=== PATIENT | male | born 1955 | race American Indian/Alaskan Native ===

== ENCOUNTER 2016-12-21 02:29 | Emergency (ER) | payer MEDICAID ==
[2016-12-21 04:07] LABS: Basophils % (Auto) 0.6 % (0.0-1.8); Hematocrit 33.9 % (35.5-45.6); Hemoglobin 10.6 gm/dl (11.8-15.2); Mean Corpuscular HGB Conc 31 % (32-34); Mean Corpuscular Volume 72 fl (84-94); Platelet Count 395 K/mm3 (140-440); Red Blood Count 4.69 M/mm3 (3.65-5.03); White Blood Count 10.6 K/mm3 (4.5-11.0)
[2016-12-21 04:12] LABS: Mean Corpuscular Hemoglobin 23 pg (28-32)
[2016-12-21 04:21] LABS: BUN/Creatinine Ratio 10.58; Calcium 9.4 mg/dL (8.4-10.2)
[2016-12-21 04:22] LABS: Potassium 4.1 mmol/L (3.6-5.0)
[2016-12-21 06:33] LABS: Urine Drugs of Abuse Note Disclamer
[2016-12-21 06:58] LABS: Bilirubin,Urine NEG (Negative); Blood,Urine NEG (Negative); Ketones,Urine TR mg/dL (Negative); Leukocyte Esterase,Urine NEG (Negative); Mucus,Urine FEW /HPF; Nitrite,Urine NEG (Negative); Urobilinogen,Urine < 2.0 mg/dL (<2.0)
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
[2016-12-21 11:36] LABS: Calcium 9.5 mg/dL (8.4-10.2); Chloride 97.7 mmol/L (98-107); Potassium 4.1 mmol/L (3.6-5.0)
[2016-12-21] MEDS ORDERED: ATIVAN PO ONE (13:24)
--- NOTE | 2016-12-21 13:26 | Consultation ---
History of Present Illness - Reason for Consult Consult date: 12/21/16 Reason for consult: psychiatric evaluation - Chief Complaint Chief complaint: "Doctor changed my med. Not really working" 61 year old black male seen in the ER for psychiatric evaluation. Family brought him for acting bizarre and non compliance with psychiatric medications. Patient appears tremulous. He reports drinking a 6 pack of beer daily and has not had any in a day. He answered some questions and would later give information previously asked about. He was looking at the ceiling camera and the hallway for long periods of time during the attempted interview. He was not aggressive or threatening. He clearly appeared paranoid. He mentioned being on risperdal for 4 years and now is on zyprexa. I was unable to obtain further symptoms or history. Medications and Allergies Allergies Allergy/AdvReac Type Severity Reaction Status Date / Time No Known Allergies Allergy Unverified 11/30/15 10:01 Home Medications Medication Instructions Recorded Confirmed Last Taken Type Gabapentin [Gralise] 300 mg PO HS 12/21/16 12/21/16 1 Week Ago History 300 Lisinopril/Hydrochlorothiazide 1 tab PO QDAY 12/21/16 12/21/16 1 Week Ago History [Zestoretic 10-12.5 mg] 1 Mirtazapine [Remeron] 45 mg PO QHS 12/21/16 12/21/16 1 Week Ago History 45 Olanzapine [ZyPREXA] 20 mg PO QDAY 12/21/16 12/21/16 1 Week Ago History 20 Simvastatin [Zocor TAB] 10 mg PO QHS 12/21/16 12/21/16 1 Week Ago History 10 diphenhydrAMINE [Benadryl CAP] 50 mg PO QHS PRN 12/21/16 12/21/16 1 Week Ago History 50 metFORMIN [Glucophage] 500 mg PO BID 12/21/16 12/21/16 1 Week Ago History 500 Past psychiatric history - Past Medical History Past Medical History: other (unk) Past Surgical History: Other (unk) - past Psychiatric treatment and history Psych: Schizophrenia - Social History Social history: other (denies illicit drug use. admitted to daily alcohol use, 6 pk daily. bal neg) Mental Status Exam - Vital signs Last Vital Signs Temp 97.6 F 12/21/16 10:50 Pulse 119 H 12/21/16 10:50 Resp 18 12/21/16 10:50 BP 150/93 12/21/16 10:50 Pulse Ox 98 12/21/16 10:50 - Exam Narrative exam: unable to determine thought process. paucity Orientation: place, person Affect: other (frightened) Mood: fearful Thought content: paranoia Perceptions: other (unknown/unable to assess) Speech: paucity Concentration: unable to pay attention (kept staring at the camera) Motor activity: other (slo) Level of consciousness: alert Interaction: cooperative (attempted) Results Result Diagrams: 12/21/16 03:50 12/21/16 11:05 Abnormal lab results 12/21/16 12/21/16 12/21/16 Range/Units 03:50 03:50 06:59 Hgb 10.6 L (11.8-15.2) gm/dl Hct 33.9 L (35.5-45.6) % MCV 72 L (84-94) fl MCH 23 L (28-32) pg MCHC 31 L (32-34) % RDW 18.0 H (13.2-15.2) % Lymph % (Auto) 13.1 L (13.4-35.0) % Seg Neutrophils % 80.2 H (40.0-70.0) % Seg Neutrophils # 8.5 H (1.8-7.7) K/mm3 Chloride (98-107) mmol/L Carbon Dioxide 16 L (22-30) mmol/L Creatinine 1.7 H (0.8-1.5) mg/dL Glucose 141 H (75-100) mg/dL Total Creatine Kinase (55-170) units/L Salicylates < 0.3 L (2.8-20.0) mg/dL 12/21/16 12/21/16 Range/Units 07:00 11:05 Hgb (11.8-15.2) gm/dl Hct (35.5-45.6) % MCV (84-94) fl MCH (28-32) pg MCHC (32-34) % RDW (13.2-15.2) % Lymph % (Auto) (13.4-35.0) % Seg Neutrophils % (40.0-70.0) % Seg Neutrophils # (1.8-7.7) K/mm3 Chloride 97.7 L (98-107) mmol/L Carbon Dioxide 18 L (22-30) mmol/L Creatinine (0.8-1.5) mg/dL Glucose 163 H (75-100) mg/dL Total Creatine Kinase 286 H (55-170) units/L Salicylates (2.8-20.0) mg/dL All other labs normal. Assessment and Plan Assessment and plan: Impression: Psychosis Likely schizophrenia, paranoid type possible alcohol withdrawal Recommendation/Plan: Trial of Ativan 1mg po for tremors/anxiety CIWA for possible alcohol use disorder and potential for withdrawal Zyprexa 10mg bid for psychosis (per his home med/dose). Add cogentin 0.5mg bid for EPS prevention. 1013 and transfer to inpatient psych when medically cleared If patient in ER for extended period of time, will consider changing his antipsychotic. It is unclear if he was non compliant because of side effects. This is significant since the one clear statement the patient said was "doctor changed my med, not really working."
[2016-12-21] MEDS ORDERED: ATIVAN IV PRN (14:51)
[2016-12-21] MEDS ORDERED: ATIVAN PO PRN ×2 (14:51)
[2016-12-21] MEDS: COGENTIN PO SCH ×2 (17:30→22:13)
[2016-12-22] MEDS: COGENTIN PO SCH ×2 (09:49→23:05)
--- NOTE | 2016-12-22 18:07 | Progress Note ---
Subjective - Reason for Consult Consult date: 12/22/16 Reason for consult: psychosis Mental Status Exam - Vital signs Last Vital Signs Temp 99.3 F 12/22/16 07:54 Pulse 87 12/22/16 07:54 Resp 16 12/22/16 07:54 BP 98/50 12/22/16 07:54 Pulse Ox 100 12/22/16 07:54 Assessment and Plan Subjectively: Patient appears more organized today compared to the review of the medical record from the patient's examination yesterday. Patient is able to logically and coherently tell me his place of residence and is able to report that he wants to go back to his place residence. Patient lives in a personal correction with a roommate. Patient reports that he has an average monthly income of about $700. Patient does note that he was becoming increasingly paranoid; however, he has some insight into his paranoia and currently denies experiencing that people are out to get him. General Appearance: In hospital gown Sensorium/Consciousness: alert and responding to external stimuli; clear Orientation: person, place, time and situation Eye Contact: limited Attitude / Behavior: guarded Psychomotor & Musculoskeletal Activity: Tremor, perioral involuntary movements likely TD from long-term oral antipsychotic exposure Mood: Better Affect: constricted, limited range Speech / Language: fluent, with normal rate/rhythm/tone Thought Processes: More organized but clearly having a thought disorder Thought Content: No acute SI or HI, some paranoia has been reduced Perception: no AVH Insight: More insightful about the recent paranoid thoughts Judgement: Improving Capacity for ADLs: independent Plan: - Continue to evaluate if the patient needs to remain on an involuntary psychiatric hold - Continue Jalyn Camacho to help further organize his thought process and reduces paranoia
[2016-12-23] MEDS: COGENTIN PO SCH (10:08)
--- NOTE | 2016-12-23 16:34 | Progress Note ---
Subjective - Reason for Consult Consult date: 12/23/16 Reason for consult: disorganized behaviors Mental Status Exam - Vital signs Last Vital Signs Temp 97.8 F 12/23/16 09:05 Pulse 63 12/23/16 09:05 Resp 20 12/23/16 09:05 BP 117/70 12/23/16 09:05 Pulse Ox 98 12/23/16 09:05 Assessment and Plan Subjectively: Patient again appears more organized today. Per collateral information, patient is able to return home. Patient has requested to be discharged from the ER as his thought process has improved with the recent re-initiation of his medication regimen General Appearance: In hospital gown Sensorium/Consciousness: alert and responding to external stimuli; clear Orientation: person, place, time and situation Eye Contact: limited Attitude / Behavior: guarded Psychomotor & Musculoskeletal Activity: Tremor, perioral involuntary movements likely TD from long-term oral antipsychotic exposure Mood: Better Affect: constricted, limited range Speech / Language: fluent, with normal rate/rhythm/tone Thought Processes: More organized but clearly having a thought disorder Thought Content: No acute SI or HI, some paranoia has been reduced Perception: no AVH Insight: More insightful about the recent paranoid thoughts Judgement: Improving Capacity for ADLs: independent Plan: - Rescind 1013 - Continue Zyprexa and cogentin - Follow up with outpatient services
[2016-12-23 18:38] VITALS: BP 120/78
== END 2016-12-23 18:47 | disposition home or self-care (01) ==
LOC: EEVIPCON 02:29 → ED 02:29
DX: F20.9 Schizophrenia, unspecified (principal); F29 Unspecified psychosis not due to a substance or known physiological condition; F14.10 Cocaine abuse, uncomplicated; F10.10 Alcohol abuse, uncomplicated; F31.9 Bipolar disorder, unspecified; I10 Essential (primary) hypertension; E11.9 Type 2 diabetes mellitus without complications; E78.00 Pure hypercholesterolemia, unspecified; F17.200 Nicotine dependence, unspecified, uncomplicated
CPT/HCPCS: 36415; 80048; 80307; 81001; 82550; 85025; 99284; G0480; 80320

== ENCOUNTER 2017-05-30 09:11 | Emergency (ER) | payer MEDICAID ==
[2017-05-30 10:17] LABS: Basophils % (Auto) 0.4 % (0.0-1.8); Eosinophils % (Auto) 3.6 % (0.0-4.3); Hematocrit 35.4 % (35.5-45.6); Hemoglobin 11.4 gm/dl (11.8-15.2); Mean Corpuscular HGB Conc 32 % (32-34); Mean Corpuscular Hemoglobin 27 pg (28-32); Mean Corpuscular Volume 83 fl (84-94); Platelet Count 242 K/mm3 (140-440); Red Blood Count 4.27 M/mm3 (3.65-5.03); Red Cell Distribution Width 17.3 % (13.2-15.2); White Blood Count 5.6 K/mm3 (4.5-11.0)
[2017-05-30 10:20] LABS: Alanine Aminotransferase 7 units/L (7-56); Albumin 3.7 g/dL (3.9-5); Albumin/Globulin Ratio 1.1 %; Alkaline Phosphatase 84 units/L (35-129); Anion Gap 16 mmol/L; BUN/Creatinine Ratio 9; Blood Urea Nitrogen 11 mg/dL (9-20); Carbon Dioxide 25 mmol/L (22-30); Chloride 102.7 mmol/L (98-107); Glucose 96 mg/dL (75-100); Lipase 17 units/L (13-60); Potassium 4.3 mmol/L (3.6-5.0); Sodium 139 mmol/L (137-145); Total Protein 7.1 g/dL (6.3-8.2)
[2017-05-30 10:58] LABS: Bilirubin,Urine NEG (Negative); Blood,Urine NEG (Negative); Ketones,Urine NEG (Negative); Leukocyte Esterase,Urine NEG (Negative); Mucus,Urine FEW /HPF; Nitrite,Urine NEG (Negative); Protein,Urine <15 mg/dL mg/dL (Negative); Urobilinogen,Urine < 2.0 mg/dL (<2.0); WBC,Urine < 1.0 /HPF (0.0-6.0)
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
[2017-05-30 15:32] VITALS: BP 111/62
== END 2017-05-30 15:32 | disposition home or self-care (01) ==
LOC: ED 09:11
DX: K42.9 Umbilical hernia without obstruction or gangrene (principal); I10 Essential (primary) hypertension; E11.9 Type 2 diabetes mellitus without complications; F17.200 Nicotine dependence, unspecified, uncomplicated
CPT/HCPCS: 36415; 74176; 80053; 81001; 83690; 85025

== ENCOUNTER 2022-04-02 21:35 | Emergency (ER) | payer MEDICARE ==
[2022-04-02 23:43] LABS: Basophils % (Auto) 0.8 % (0.0-1.8); Eosinophils # (Auto) 0.1 K/mm3 (0.0-0.4); Eosinophils % (Auto) 2.1 % (0.0-4.3); Hematocrit 38.6 % (35.5-45.6); Hemoglobin 12.7 gm/dl (11.8-15.2); Lymphocytes # (Auto) 1.4 K/mm3 (1.2-5.4); Lymphocytes % (Auto) 27.2 % (13.4-35.0); Mean Corpuscular HGB Conc 33 % (32-34); Mean Corpuscular Volume 84 fl (84-94); Monocytes # (Auto) 0.2 K/mm3 (0.0-0.8); Monocytes % (Auto) 3.3 % (0.0-7.3); Platelet Count 245 K/mm3 (140-440); Red Blood Count 4.57 M/mm3 (3.65-5.03); Red Cell Distribution Width 14.9 % (13.2-15.2)
[2022-04-02 23:56] LABS: Bilirubin,Urine Negative (Negative); Blood,Urine Negative (Negative); Color,Urine Yellow (Yellow); Urobilinogen,Urine < 2.0 mg/dL (<2.0)
[2022-04-03 00:01] LABS: Mucus,Urine FEW /HPF; RBC,Urine < 1.0 /HPF (0.0-6.0)
[2022-04-03 00:03] LABS: Amphetamine Screen,Urine PRESUMPTIVE NEGATIVE; Benzodiazepines Screen,Urine PRESUMPTIVE NEGATIVE; Cannabinoid Screen,Urine PRESUMPTIVE NEGATIVE; Cocaine Screen,Urine PRESUMPTIVE NEGATIVE; Methadone Screen,Urine PRESUMPTIVE NEGATIVE; Opiate Screen,Urine PRESUMPTIVE NEGATIVE
[2022-04-03 00:27] LABS: Alanine Aminotransferase 18 units/L (7-56); Albumin 3.9 g/dL (3.9-5); BUN/Creatinine Ratio 14; Blood Urea Nitrogen 13 mg/dL (9-20); Calcium 9.3 mg/dL (8.4-10.2); Hemolysis Index 3
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
[2022-04-03 10:26] VITALS: BP 120/87
[2022-04-03] MEDS ORDERED: NON-FORMULARY EACH (Olanzapine [Zyprexa] 20 MG Tablet) PO SCH (10:30)
[2022-04-03] MEDS ORDERED: MIRTAZAPINE 15 MG TAB PO SCH (22:00)
[2022-04-03] MEDS ORDERED: MIRTAZAPINE 45 MG PO SCH (22:00)
== END 2022-04-03 21:04 | disposition still patient (30) ==
LOC: ED 21:35 → EEVIPCON 21:35 → ED 04-03 21:04
DX: R44.0 Auditory hallucinations (principal); I10 Essential (primary) hypertension; E11.9 Type 2 diabetes mellitus without complications; Z87.891 Personal history of nicotine dependence
CPT/HCPCS: 36415; 80053; 80307; 80320; 81001; 84443; 85025; 99285; G0480; U0003